=== PATIENT | male | born 1960 | race Hispanic/Latino ===

== ENCOUNTER → 2018-10-29 | Day surgery (SDC) | payer BC ==
[~2018-10-29] MED LIST: FENTANYL CITRATE/PF 100MCG/2 ML INJ ONE; HYOSCYAMINE SULFATE 0.5 MG/ML INJ ONE; LIDOCAINE HCL 2% LOCAL INJ 5 ML SDV VIAL INJ ONE; LOSARTAN-HCTZ1 EAC1 PO; MIDAZOLAM HCL 2 MG/2 ML VIAL ONE; NEXIUM40 MG PO; PRAVASTATIN SOD20 MG PO; PROPOFOL IV EMULSION 10 MG/ML 50 ML VIAL ONE
[2018-10-29 09:45] VITALS: BP 137/91
--- NOTE | 2018-10-29 12:05 | Operative Report ---
DATE OF PROCEDURE: October 29, 2018 REFERRING PHYSICIAN: Dr. Angel Bauer. PROCEDURE PERFORMED: Esophagogastroduodenoscopy with biopsies and colonoscopy with polypectomy. INDICATIONS FOR ESOPHAGOGASTRODUODENOSCOPY: Upper abdominal pain, heartburn. INDICATIONS FOR COLONOSCOPY: Colorectal cancer screening. MEDICATION: Patient was done under MAC. Please see anesthesiologist's note. PROCEDURE: Patient in left lateral decubitus position, the flexible fiberoptic Olympus gastroscope was introduced into the esophagus under direct visualization without any difficulty. There was some patchy erythema noted in distal esophagus. The scope was then advanced with ease into the stomach. Mucosa overlying the antrum and the body revealed some patchy erythema and low-grade edema and biopsies were obtained and sent to stain for H. pylori. Pylorus appeared to be of normal contour and shape. It was intubated with ease and the scope was advanced all the way to the 2nd portion of the duodenum. The scope was then withdrawn slowly. Mucosa overlying the proximal 2nd portion and the duodenal bulb appeared to be within normal limits. The scope was then withdrawn back into the stomach and retroflexed and mucosa overlying the fundus and the cardia appeared to be within normal limits. The scope was then straightened out and was subsequently withdrawn. Patient tolerated the procedure well. IMPRESSION 1. Distal esophagitis. 2. Gastritis, biopsied. Biopsies sent to stain for H. pylori. PLAN: Follow up histology. Continue Nexium 40 mg 1 p.o. q. a.m. a.c. Patient was then turned around and after adequate lubrication of the anal canal, a flexible fiberoptic Olympus colonoscope was inserted into the rectum with ease and advanced all the way to the cecum. It was then withdrawn slowly. Mucosa overlying the cecum, ascending colon, transverse colon, and descending colon appeared to be within normal limits. A large approximately 2 cm pedunculated polyp was noted in the mid sigmoid colon and that was removed per snare electrocautery. Polypectomy site was hemoclipped x2 with excellent hemostasis. A minute polyp was noted in the distal sigmoid that was hot biopsied. One polyp was also encountered in the rectum that was hot biopsied. The scope was then retroflexed into the distal rectum and moderate-size internal hemorrhoids were noted, none of which was actively bleeding. The scope was then straightened out and was subsequently withdrawn. Patient tolerated the procedure well. IMPRESSION 1. Large sigmoid colon polyp approximately 2 cm in size, pedunculated, removed per snare electrocautery and polypectomy site was hemoclipped x2. 2. Minute polyp distal sigmoid colon, hot biopsied. 3. Rectal polyp, minute hot biopsied. 4. Internal hemorrhoids, none actively bleeding. PLAN: Follow up histology. Initiate high-fiber low-fat diet. Initiate high-fiber supplement. Timing of followup colonoscopy pending pathology report. Job#: [id number] BETH cc:DR. ANGEL BAUER
== END | disposition home or self-care (01) ==
LOC: OR 06:30
PROVIDERS: ATTEND Internal Medicine Gastroenterology
DX: Z12.11 Encounter for screening for malignant neoplasm of colon (principal); D12.5 Benign neoplasm of sigmoid colon; D12.8 Benign neoplasm of rectum; K64.8 Other hemorrhoids; K29.50 Unspecified chronic gastritis without bleeding; K21.0 Gastro-esophageal reflux disease with esophagitis; I10 Essential (primary) hypertension; Z01.810 Encounter for preprocedural cardiovascular examination; Z88.0 Allergy status to penicillin
CPT/HCPCS: 43239; 45384; 45385; 93005; J1980; J2001; J2250

== ENCOUNTER → 2022-04-21 | Outpatient (CLI) | payer BC ==
[~2022-04-21] MED LIST changes: -FENTANYL CITRATE/PF 100MCG/2 ML INJ ONE; -HYOSCYAMINE SULFATE 0.5 MG/ML INJ ONE; -LIDOCAINE HCL 2% LOCAL INJ 5 ML SDV VIAL INJ ONE; -MIDAZOLAM HCL 2 MG/2 ML VIAL ONE; -PROPOFOL IV EMULSION 10 MG/ML 50 ML VIAL ONE
== END ==
LOC: RAD 13:10
PROVIDERS: ATTEND Family Medicine
DX: S62.522A Displaced fracture of distal phalanx of left thumb, initial encounter for closed fracture (principal)